=== PATIENT | female | born 1965 | race Caucasian/White ===

== ENCOUNTER → 2019-09-02 | Outpatient (CLI) | payer OTHER | END | disposition home or self-care (01) | LOC: LABPAT 12:10 | PROVIDERS: ATTEND Orthopaedic Surgery | DX: Z01.812 Encounter for preprocedural laboratory examination (principal) | CPT/HCPCS: 87070 ==

== ENCOUNTER 2019-09-13 11:38 | Day surgery (SDC) | payer OTHER ==
--- NOTE | 2019-09-12 16:34 | HP ---
HISTORY AND PHYSICAL CHIEF COMPLAINT: Left knee pain. HISTORY OF PRESENT ILLNESS: The patient is a 54-year-old unemployed female who presents with progressive left knee pain secondary to osteoarthrosis, worsening over the past several years. She has tried previous injections, with only partial temporary relief. She has also tried medications. She notes that the pain severely limits her function and activities. PAST MEDICAL HISTORY: Past medical history is significant for: 1. Hypertension. 2. Arthritis. 3. Atrial fibrillation. 4. Obesity. PAST SURGICAL HISTORY: Negative. CURRENT MEDICATION: Losartan. ALLERGIES: SHE DENIES DRUG ALLERGIES. FAMILY HISTORY: Family history is significant for cancer and heart disease. SOCIAL HISTORY: Negative for current tobacco or alcohol use. REVIEW OF SYSTEMS: Sixteen-point review of systems otherwise reviewed and is noncontributory. PHYSICAL EXAMINATION: On examination, the patient is approximately 5 feet 1 inch, 218 pounds of endomorphic habitus. HEENT exam is nonfocal. NECK: Supple. She has painless passive motion of her left hip. Iltrjeyc-qpm-bhcyv is negative. Active motion left knee minus 16 to 105 degrees of flexion. She has a moderate effusion. She is tender about the medial joint line. Collaterals are stable, Raffaele negative, Sangeeta's equivocal. She has genu varum alignment. Her distal neurovascular exam appears intact in the left lower extremity. X-rays of the left knee obtained in the office show severe medial and patellofemoral compartment narrowing. IMPRESSION: 1. Left knee severe medial and patellofemoral compartment osteoarthrosis. 2. Obesity. 3. History of atrial fibrillation. RECOMMENDATIONS: I talked to the patient at length regarding her condition and treatment options. At this point she is quite symptomatic and limited because of pain related to her osteoarthrosis despite conservative measures. After thorough discussion, she opts to proceed with surgery. We will plan to proceed with left total knee arthroplasty. We will institute DVT prophylaxis postoperatively. Risks and benefits were discussed at length in layman's terms. MMODL / IJN: [id number] /
[~2019-09-13 11:38] MED LIST: ACETAMINOPHEN TAB 500 MG TAB PO ONE; DEXAMETHASONE SOD PHOSPHATE 10 MG/ML 1 ML VIAL IV ONE; HYDROmorphone 0.5 MG/0.5 ML SYRINGE IVP PRN; LIDOCAINE 1% 20 ML VIAL (10MG/ML) FOR IV START INTRADERMA PRN; ONDANSETRON 4 MG/2 ML VIAL IVP ONE; Pre Op ABX Message 1 EACH MISC MISCELLANE ONE; TRANEXAMIC ACID 1,000 MG in SODIUM CHLORIDE 0.9% 100 ML IVPB ONE; fentaNYL (PF) 50 MCG/ML 2 ML AMP IV PRN
[2019-09-13] MEDS ORDERED: MELOXICAM 7.5 MG TAB PO ONE (12:30)
[2019-09-13] MEDS: LACTATED RINGERS 1,000 ML IV SCH (12:33)
[2019-09-13] MEDS ORDERED: LIDOCAINE 1% 20 ML VIAL (10MG/ML) FOR IV START SQ ONE (12:34)
[2019-09-13] MEDS ORDERED: fentaNYL (PF) 50 MCG/ML 2 ML AMP IV ONE (13:19)
[2019-09-13] MEDS ORDERED: MIDAZOLAM 2 MG/2 ML VIAL IV ONE (13:19)
[2019-09-13] MEDS ORDERED: ROPIVACAINE 246.25 MG, EPINEPHrine 0.5 MG, cloNIDine HCL/PF 80 MCG, WATER FOR INJECTION... MISCELLANE ONE ×8 (14:00→14:15)
[2019-09-13] MEDS ORDERED: ROPIVACAINE 0.2%-NS ON-Q PUMP 1,090 MG, EMPTY PAIN BALL 1 EACH MISCELLANE PRN (14:48)
--- NOTE | 2019-09-13 14:51 | P.ANPRN ---
Procedure Note - Anesthesia - Nerve Block Performed Right Adductor Canal Infusion Time Out Performed: Yes Date of Procedure: 08/30/19 Procedure Start Time: 13:18 Procedure Stop Time: 13:35 Location of Patient Procedure: PreOp Indication: Acute Post-Operative Pain, Requested by Surgeon Specifically requested for management of pain by DrEricka: Benjamin Genao Sedation Type: Sedate with meaningful contact maintained Preparation: Sterile Prep Position: Supine Catheter Depth at Skin (cm): 8 Catheter: Indwelling Needle Types: Pajunk Needle Gauge: 18 Ultrasound used to visualize needle placement: Yes Ultrasound used to observe medication spread: Yes Injectate: 0.5% Ropivacaine (see comment for volume) (20cc) Blood Aspirated: No Pain Paresthesia on Injection Noted: No Resistance on Injection: Normal Image Stored and Saved: Yes Events: Uneventful and Well Tolerated
[2019-09-13] MEDS ORDERED: TRANEXAMIC ACID 1,000 MG/10 ML VIAL ONE (14:53)
[2019-09-13] MEDS ORDERED: diphenhydrAMINE 50 MG/ML 1 ML VIAL ONE (14:53)
[2019-09-13] MEDS ORDERED: SODIUM CHLORIDE 0.9% 100 ML BAG ONE (14:53)
[2019-09-13] MEDS ORDERED: PROPOFOL 10 MG/ML 20 ML VIAL IV ONE (14:53)
[2019-09-13] MEDS ORDERED: LIDOCAINE 1% INJ 10MG/ML (20 ML MDV) ONE (14:53)
[2019-09-13] MEDS ORDERED: MIDAZOLAM 2 MG/2 ML VIAL ONE (14:53)
[2019-09-13] MEDS ORDERED: KETAMINE 10 MG/ML 20 ML VIAL ONE (14:53)
[2019-09-13] MEDS ORDERED: GLYCOPYRROLATE 0.2 MG/ML 2 ML VIAL ONE (14:53)
[2019-09-13] MEDS ORDERED: fentaNYL (PF) 50 MCG/ML 2 ML AMP ONE (14:53)
[2019-09-13] MEDS ORDERED: ceFAZolin 3,000 MG in SODIUM CHLORIDE 0.9% IRRIGATIO 3,000 ML IRRIGATION ONE (15:26)
[2019-09-13] MEDS ORDERED: traMADol 50 MG TAB PO PRN (16:29)
[2019-09-13] MEDS ORDERED: MAGNESIUM HYDROXIDE 2,400 MG/10 ML CUP PO PRN (16:29)
[2019-09-13] MEDS ORDERED: ONDANSETRON 4 MG/2 ML VIAL IVP PRN (16:29)
[2019-09-13] MEDS ORDERED: ACETAMINOPHEN TAB 325 MG TAB PO PRN (16:29)
[2019-09-13] MEDS ORDERED: NALOXONE 0.4 MG/ML 1 ML VIAL IV PRN (16:29)
[2019-09-13] MEDS ORDERED: LACTATED RINGERS 1,000 ML IV ONE (16:46)
--- NOTE | 2019-09-13 16:59 | P.OP ---
Date of Procedure: 09/13/19 Preoperative Diagnosis: Left knee severe tricompartmental osteoarthrosis Postoperative Diagnosis: Same Procedure(s) Performed: Left total knee arthroplastycementedcruciate retaining Implants: Depuy Attune size 5 cemented narrow femoral component, size 4 cemented tibial component, 9 mm articular surface, 32 mm cemented patellar component. This was a cruciate retaining implant. Anesthesia: regional, local, spinal Surgeon: Benjamin Genao Load Haul Dump Operator #1: Rudy Patel Estimated Blood Loss (ml): 50 Pathology: other (Bone fragments) Condition: stable Disposition: PACU Indications for Procedure: The patient's a 54-year-old female who presents with progressive left knee pain secondary to osteoarthrosis despite conservative measures. A discussion of the risks and benefits of operative intervention versus continued conservative measures was made with patient. She opted to proceed with surgery. Operative risks to include infection, neurovascular injury, development of blood clots, possible fracture, possible component loosening and need for subsequent procedures was discussed. Informed consent was obtained. Operative Findings: As below Description of Procedure: The patient was brought to the operating room, and after induction of spinal anesthesia the left lower extremity was prepped and draped in a normal fashion. The tourniquet was inflated to 270 mmHg. A longitudinal incision extending 3 finger breaths above the superior pole of the patella extending to the medial aspect the tibial tubercle was then made. The skin and subcutaneous tissues we re divided sharply. Electrocautery was used for hemostasis. A medial parapatellar arthrotomy was then performed. The medial soft tissues to include the superficial and deep portions of the medial collateral ligament as well as the medial hamstring tendons were elevated subperiosteally. The proximal medial tibia osteophytes were carefully removed. The patella was everted. The knee was flexed. A portion of the retropatellar fat pad was excised sharply. The anterior cruciate ligament was sacrificed. A starting hole was made in the distal femur 1 cm anterior to the posterior cruciate origin. An intramedullary femoral guide was gently inserted planning on 5 valgus distal cut with 9 mm distal resection. The cutting block was pinned in place. The distal cut was then made. The posterior referencing sizing guide was utilized. 3 of external rotation was built into the system and verified off the trans- epicondylar axis and the posterior condyles. I felt size 5 was most appropri ate. The cutting block was pinned in place. The anterior, posterior, and chamfer cuts were then made. The bone fragments were removed. A sulcus cut was then made with the appropriate guide. The trial size 5 femoral component was then placed and was fully seated. There was good anterior to posterior and medial to lateral fit. The distal peg holes were then drilled. The trial component was then removed. Attention was then paid towards preparing the proximal tibia. An extra medullary guide was utilized in line with the tibial shaft and second metatarsal distally. A 7 posterior slope was planned. I planned on 2 mm resection from the medial compartment. The cutting block was pinned in place. The proximal tibial cut was then made. The bone was removed in one fragment. The remnants of the medial and lateral menisci were excised the capsule junction with electrocautery. The tibia sized most appropriately at size 4. The posterior osteophytes off the distal femur were carefully removed with a curved osteotome. The trial tibial and femoral components were placed along with a 9 millimeters articular surface. I was able to obtain full flexion and extension with good stability with varus and valgus stress. After several flexion and extension cycles, the tibial rotation was marked with electrocautery in line with the medial one third of the tibial tubercle. Attention was then paid towards preparing the patella. A patella reamer was utilized taking this down to 14 mm of bone stock. A good flush cut was made. The patella sized most appropriately at 32 millimeters. The peg holes were then drilled. The trial component was placed. The knee was taken through a range of motion. I had good patellofemoral tracking with no hands technique. The trial components were then removed. The tibia was prepared in the appropriate rotation with appropriate drill and keel punch. The flexion and extension gaps were checked and felt to be symmetric. The posterior soft tissues were injected with ropivacaine. The bony surfaces were prepared with pulsatile lavage and dried. The deep tibial component was then cemented in place and was fully seated. Excess cement was removed. The femoral component was cemented in place and was fully seated. Again excess cement was removed. The trial 9 millimeters surface was then inserted in the knee was put in full extension. The patella component was cemented in place. After the cement had sufficiently hardened, the knee was again taken through a range of motion. Again there was good stability in flexion and extension with varus and valgus stress. The trial articular surface was then removed. The final articular surface was placed and was impacted. Care was taken to avoid any soft tissue interposition. Pulsatile lavage was again utilized. The tourniquet was deflated with approximately 70 minutes total tourniquet time. There was minimal drainage therefore a deep drain was not placed. The medial parapatellar arthrotomy was then closed with #2 Ethibond suture. The subcutaneous tissues were reapproximated interrupted 2-0 Vicryl sutures. The skin was reapproximated with 3-0 subarticular strata fix suture. Skin tape and adhesive was applied. A sterile dressing was applied. The patient was then awoken from sedation and transferred to recovery room in good condition. Blood loss was estimated at[] milliliters. No complications were incurred. Sponge and needle counts were correct at the end the case. Luis JACKSON assisted during the major components this case to include exposure, bone resection, and implantation.
--- NOTE | 2019-09-13 17:30 | XR ---
EXAMINATION TYPE: XR knee limited LT DATE OF EXAM: 09/13/2019 COMPARISON: NONE HISTORY: Postop TECHNIQUE: 2 views FINDINGS: There is left knee prosthesis. Components are in anatomic position. There is knee joint eff usion. There is no evidence of a fracture. IMPRESSION: Knee prosthesis in anatomic position.
[2019-09-13 18:16] VITALS: BMI 40.8
--- NOTE | 2019-09-13 20:04 | P.CONS ---
History of Present Illness - Reason for Consult Consult date: 09/13/19 - History of Present Illness The patient is a 54-year-old female with a past history of hypertension and obstructive sleep apnea (on CPAP) who was admitted to the hospital for planned left knee arthroplasty which she underwent uneventfully earlier today. The patient was seen on the surgical unit postoperatively and reported excellent control of her pain currently at a 2/10. She denied any additional complaints and was in good spirits. She denied chest pain, shortness of breath, nausea, vomiting, fever, chills, or abdominal pain. The patient has her home CPAP by the bedside. She notes compliance with her home losartan. Review of Systems Pertinent positives and negatives as discussed in HPI, a complete review of systems was performed and all other systems are negative. Past Medical History Past Medical History: Atrial Fibrillation, GERD/Reflux, Hypertension, Osteoarthritis (OA), Sleep Apnea/CPAP/BIPAP Additional Past Medical History / Comment(s): cpap machine History of Any Multi-Drug Resistant Organisms: None Reported Past Surgical History: Cardiac Ablation, Hysterectomy, Tonsillectomy Past Anesthesia/Blood Transfusion Reactions: No Reported Reaction Past Psychological History: No Psychological Hx Reported Smoking Status: Former smoker Past Alcohol Use History: Rare Additional Past Alcohol Use History / Comment(s): occasional smoker quit 20 years ago Past Drug Use History: None Reported - Past Family History Mother Family Medical History: Cancer Additional Family Medical History / Comment(s): breast cancer Father Family Medical History: Cancer Additional Family Medical History / Comment(s): prostate cancer Medications and Allergies Home Medications Medication Instructions Recorded Confirmed Type Losartan [Cozaar] 50 mg PO DAILY 09/08/19 09/13/19 History Allergies Allergy/AdvReac Type Severity Reaction Status Date / Time aspirin Allergy Anaphylaxis Verified 09/13/19 12:11 codeine Allergy Anaphylaxis Verified 09/13/19 12:11 Physical Exam Vitals: Vital Signs Temp Pulse Pulse Resp BP Pulse Ox 09/13/19 18:10 97.8 F 73 16 120/74 92 L 09/13/19 17:40 70 16 128/60 96 09/13/19 17:25 76 16 135/75 95 09/13/19 17:10 78 18 135/75 94 L 09/13/19 16:59 97 F L 96 16 134/66 95 09/13/19 13:45 61 16 128/68 98 09/13/19 12:18 97.3 F L 69 16 160/72 93 L Intake and Output 09/13/19 09/13/19 09/13/19 06:59 14:59 22:59 Intake Total 1050 401 Output Total 50 Balance 1050 351 Intake: IV 1050 401 Output: Estimated Blood Loss 50 General: non toxic, no distress, appears at stated age, normal weight Derm: no unusual rashes/lesions no unusual ecchymoses, warm, dry Head: atraumatic, normocephalic, symmetric Eyes: EOMI, no lid lag, anicteric sclera, pupils equal round reactive to light ENT: Nose and ears atraumatic, no thrush, no pharyngeal erythema Neck: No thyromegaly, no cervical lymphadenopathy, trachea midline, supple Mouth: no lip lesion, mucus membranes moist Cardiovascular: S1S2 reg, no murmur, positive posterior tibial pulse bilateral, no edema, capillary refill less than 2 seconds Lungs: CTA bilateral, no rhonchi, no rales , no accessory muscle use Abdominal: soft, nontender to palpation, no guarding, no appreciable organomegaly, normal bowel sounds Ext: no gross muscle atrophy, postsurgical left knee with an Gabriel dressing Neuro: CN II-XI grossly intact, light touch intact all 4 extremities, finger to nose within normal limits, Psych: Alert, oriented, appropriate affect Assessment and Plan Plan: Hypertension -Continue with home med losartan Obstructive sleep apnea -Continue with home CPAP Status post left knee arthroplasty -Management including pain control as per surgery DVT prophylaxis -As per surgery -Currently on Xarelto
[2019-09-13] MEDS ORDERED: SENNOSIDES-DOCUSATE SODIUM 1 EACH TAB PO SCH (21:00)
[2019-09-14] MEDS: LACTATED RINGERS 1,000 ML IV SCH (05:57)
[2019-09-14 07:18] VITALS: BP 126/71; PULSE 58; RESP 17; TEMP 98.5
[2019-09-14] MEDS ORDERED: RIVAROXABAN 10 MG TAB PO SCH (09:00)
[2019-09-14] MEDS ORDERED: LOSARTAN 50 MG TAB PO SCH (09:00)
[2019-09-14 09:29] LABS: Basophils % (A) 0 %; Eosinophils % (A) 0 %; HCT 37.1 % (34.0-46.0); HGB 12.3 gm/dL (11.4-16.0); Lymphocytes # (A) 1.7 k/uL (1.0-4.8); Lymphocytes % (A) 14 %; MCH 29.7 pg (25.0-35.0); MCHC 33.2 g/dL (31.0-37.0); MCV 89.4 fL (80.0-100.0); Monocytes # (A) 0.3 k/uL (0-1.0); Monocytes % (A) 2 %; Neutrophils # (A) 10.3 k/uL (1.3-7.7); Neutrophils % (A) 83 %; Platelet Count 297 k/uL (150-450); RBC 4.15 m/uL (3.80-5.40); RDW 12.9 % (11.5-15.5); WBC 12.4 k/uL (3.8-10.6)
--- NOTE | 2019-09-14 11:05 | P.PN ---
Subjective Progress Note Date: 09/14/19 Principal diagnosis: knee pain Patient with 54-year-old female with a past medical history of hypertension, obstructive sleep apnea on CPAP, A. fib, and hypertension who presented for elective left total knee arthroplasty. She tolerated the procedure without any immediate postoperative complications. Patient seen and examined at bedside. She is on be worked with physical therapy this morning. She reports that her pain is well-controlled. She denies any chest pain, shortness breath, nausea, or vomiting. She has not had a bowel movement yet. Objective - Vital Signs Vital signs: Vital Signs Temp 98.5 F 09/14/19 07:17 Pulse 58 L 09/14/19 07:17 Resp 17 09/14/19 07:17 BP 126/71 09/14/19 07:17 Pulse Ox 94 L 09/14/19 07:17 Intake & Output 09/13/19 09/14/19 09/14/19 18:59 06:59 18:59 Intake Total 1451 600 Output Total 50 Balance 1401 600 Intake: IV 1451 Oral 600 Output: Estimated Blood Loss 50 Other: # Voids 2 - Exam General: non toxic, no distress, appears at stated age, obese Derm: Dressing in place over left knee warm, dry Head: atraumatic, normocephalic, symmetric Eyes: EOMI, no lid lag, anicteric sclera Mouth: no lip lesion, mucus membranes moist Cardiovascular: S1S2 reg, no murmur, positive posterior tibial pulse bilateral, Lungs: CTA bilateral, no rhonchi, no rales , no accessory muscle use Abdominal: soft, nontender to palpation, no guarding, no appreciable or ganomegaly Ext: no gross muscle atrophy, no edema, no contractures Neuro: CN II-XI grossly intact, no focal neuro deficits Psych: Alert, oriented, appropriate affect - Labs CBC & Chem 7: 09/14/19 07:36 Labs: Abnormal Lab Results - Last 24 Hours (Table) 09/14/19 Range/Units 07:36 WBC 12.4 H (3.8-10.6) k/uL Neutrophils # 10.3 H (1.3-7.7) k/uL Assessment and Plan Assessment: Patient is a 54-year-old female status post left total knee arthroplasty. Hypertension, controlled -Continue with losartan Obstructive sleep apnea -Continue with home CPAP GERD -As needed PPI Patient is medically optimized for discharge at the discretion of orthopedic surgery. Thank you for allowing us to participate in the care of this patient. Do not hesitate to contact us with questions. Someone can be reached from the [facility] hospitalist group at all hours of the day at [phone].
--- NOTE | 2019-09-14 11:15 | P.PN ---
Subjective Progress Note Date: 09/14/19 Principal diagnosis: s/p left tka Pateint doing very well, pain is well controlled. Denies chest pain or shortness of breath. Has done very well with therapy. Objective - Vital Signs Vital signs: Vital Signs Temp 98.5 F 09/14/19 07:17 Pulse 58 L 09/14/19 07:17 Resp 17 09/14/19 07:17 BP 126/71 09/14/19 07:17 Pulse Ox 94 L 09/14/19 07:17 Intake & Output 09/13/19 09/14/19 09/14/19 18:59 06:59 18:59 Intake Total 1451 600 Output Total 50 Balance 1401 600 Intake: IV 1451 Oral 600 Output: Estimated Blood Loss 50 Other: # Voids 2 - Exam Left lower extremity: Incision is clean, dry, and intact. The exofin fusion tape is in good condition. There is minimal soft tissue swelling and ecchymosis surrounding the medial and lateral aspects of the incision. Calf is soft, no tenderness with palpation. Plantar flexion, dorsiflexion, EHL, FHL are intact. Sensory exam to light touch throughout the extremity is intact, dorsal pedis pulses 2+. - Labs CBC & Chem 7: 09/14/19 07:36 Labs: Abnormal Lab Results - Last 24 Hours (Table) 09/14/19 Range/Units 07:36 WBC 12.4 H (3.8-10.6) k/uL Neutrophils # 10.3 H (1.3-7.7) k/uL Assessment and Plan Plan: Assessment: Postop day #1 status post left total knee arthroplasty Plan: Pain control, tramadol 50 mg every 6 hours and Tylenol after discharge GI and DVT prophylaxis, Xarelto 10 mg every 12 days Wound care management discussed Medical recommendations Physical therapy and nursing after discharge Plan for discharge home today Time with Patient: Less than 30
--- NOTE | 2019-09-14 11:18 | P.DS ---
Providers Date of admission: 09/13/2019 Expected date of discharge: 09/14/19 Attending physician: Benjamin Genao Consults: 09/13/19 16:29 Consult Physician Routine Consulting Provider: Brielle Cobian Consult Reason/Comments: medical management Do you want consulting provider notified?: Yes Primary care physician: Brielle Cobian MD Hospital Course: Date of admission: 09/13/2019 Date of discharge: 09/14/2019 Admission diagnosis: Status post left total knee arthroplasty Discharge diagnosis: Same Attending physician: Dr. Genao Surgical procedures: Left total knee arthroplasty Brief history: Patient is a 54-year-old female with a history of progressive primary left knee osteoarthritis. At this point patient has failed conservative treatment measures and has opted to proceed with a elective left total knee arthroplasty. Hospital course: Details of patient's surgery can be found in operative report. Patient tolerated the procedure well and was subsequently transported to orthopedic floor. Patient's orthopeidc and medical care was provided daily. Patient had daily laboratory tests performed for evaluation of overall blood counts. Patient had daily physical therapy to include strengthening range of motion as well as education with walker ambulation. Patient had daily CPM usage as part of their physical therapy program. Patient was treated with Xarelto for their postoperative DVT prophylaxis during their inpatient stay. Patient was noted to have a relatively uneventful postoperative course. Patient reported satisfactory pain control with oral pain medications by postoperative day 0. Patient showed satisfactory progress with physical therapy. Patient moved steadily through the program and had no difficulty meeting the goals by postoper ative day 1. Given patient's otherwise satisfactory course and having met physical therapy goals, plan is to discharge patient home on postoperative day 1. Discharge condition/disposition: Patient will be discharged home in stable condition. Discharge medications: Instructions are given on resumption of patient's normal daily medications per primary care recommendation, in addition patient will be prescribed tramadol 50 mg, Colace 100 mg, Xarelto 10 mg. Discharge instructions: 1. Wound care and infection precautions, keep incision dry and covered while showering, no lotions, creams, moisturizers. No soaking, tubs, pools, hottubs. Do not scrub over the incision. 2. Weight-bear as tolerated with walker / cane until follow-up. 3. Ice and elevate when necessary. Do not exceed 20 minutes per hour with ice pack. 4. Utilize compression sleeve until seen at first follow up appointment. 5. Visiting nursing care. 6. Home physical therapy including home CPM. 7. Pain meds and anticoagulants per prescription. 8. Pain medication has potential to cause constipation. Increase oral fluid and fiber intake. Contact primary care provider if you have not had a bowel movement within 48 hours after discharge 9. No anti-inflammatory medication until discussed at first post operative visit, this including Motrin, Aleve, Mobic, Diclofenac. 10. Follow up in office at 2 weeks postop with Luis Patel PA-C 11. Follow up with your primary care doctor 7-10 days after discharge. 12. Contact [facility] with any questions, . Procedures: Left total knee arthroplasty Patient Condition at Discharge: Good Plan - Discharge Summary Discharge Rx Participant: Yes New Discharge Prescriptions: New Docusate [Colace] 100 mg PO DAILY #30 capsule traMADol HCl [Ultram] 50 mg PO Q6H PRN #28 tab PRN Reason: Pain Rivaroxaban [Xarelto] 10 mg PO DAILY #12 tab Continue Losartan [Cozaar] 50 mg PO DAILY Discharge Medication List Losartan [Cozaar] 50 mg PO DAILY 09/08/19 [History] Docusate [Colace] 100 mg PO DAILY #30 capsule 09/14/19 [Rx] Rivaroxaban [Xarelto] 10 mg PO DAILY #12 tab 09/14/19 [Rx] traMADol HCl [Ultram] 50 mg PO Q6H PRN #28 tab 09/14/19 [Rx] Follow up Appointment(s)/Referral(s): [facility], [NON-STAFF] - Rudy Patel PAC [PHYSICIAN FORESTRY INSTRUCTOR] - 09/28/19 3:10 pm Brielle Cobian MD [Primary Care Provider] - 09/20/19 9:00 am Activity/Diet/Wound Care/Special Instructions: Orthopedic Discharge Instructions: 1. Wound care and infection precautions, keep incision dry and covered while showering, no lotions, creams, moisturizers. No soaking, pools, hot tubs. Do not scrub over incision. 2. Weight-bear as tolerated with walker / cane until follow-up. 3. Ice and elevate when necessary. Do not exceed 20 minutes per hour with ice pack. 4. Utilize compression sleeve until seen at first follow up appointment. 5. Pain meds and anticoagulants per prescription. 6. Pain medication has potential to cause constipation. Increase oral fluid and fiber intake. Contact primary care provider if you have not had a bowel movement within 48 hours after discharge. 7. No anti-inflammatory medication until discussed at first post operative visit, this including Motrin, Aleve, Mobic, Diclofenac. 8. Follow up in office at 2 weeks postop with Luis Patel PA-C 9. Follow up with your primary care doctor 7-10 days after discharge. 10. Contact [facility] with any questions, [phone]. 11. *Please call [facility] once home to arrange delivery of Continuous Passive Motion (CPM) machine: [phone] Discharge Disposition: HOME WITH HOME HEALTH SERVICES
--- NOTE | 2019-09-14 12:00 | P.PN ---
Progress Note - Text Progress Note Date: 09/14/19 Patient was seen at bedside at 6:40 AM. Patient is postop day 1 from right total knee replacement with adductor canal catheter placed for pain . Ropivacaine 0.2% infusion running at 8 ml per hour. VAS score is 1. Patient denies side effects. Lower extremity sensation and motor function is intact. Patient has not yet ambulated. Dressing clean dry and intact over catheter site
--- NOTE | 2019-09-16 15:22 | CDI ---
Date: 09/16/19 CDS/Case Liner Name: Marisa Thompson Phone: If any questions, call Ryanne Allen Ash Handler at [phone] Patient Name: Dayron Lobo Admit Date: 09/13/19 Discharge Date: 09/14/19 ATTENTION: The [facility] Coding Staff appreciate your assistance in clarifying documentation. Please respond to the clarification below the line and electronically sign. The [facility] Coding Staff with review the response and follow- up if needed. Please note: Queries are made part of the Legal Health Record. If you have any questions, please contact the Ash Handler. Dear. Dr. Hadley, Please provide clarification as to the laterality of the nerve block to the adductor canal infusion. The operative report states that the procedure was performed on the left knee. The anesthesia procedure note states the block was performed on the right knee. Please clarify. Thank you for your kind consideration. ____ The adductor canal lock was performed on the left side. The procedure note incorrectly states that it was performed on the right. [facility]
== END 2019-09-14 12:54 | disposition home health service (06) ==
LOC: OR 11:38 → 4SSUR 16:59 → OR 09-14 12:54
PROVIDERS: ATTEND Orthopaedic Surgery
DX: M17.12 Unilateral primary osteoarthritis, left knee (principal); M25.762 Osteophyte, left knee; I10 Essential (primary) hypertension; K21.9 Gastro-esophageal reflux disease without esophagitis; R73.02 Impaired glucose tolerance (oral); G47.33 Obstructive sleep apnea (adult) (pediatric); Z99.89 Dependence on other enabling machines and devices; E66.9 Obesity, unspecified; Z68.41 Body mass index [BMI] 40.0-44.9, adult; Z87.891 Personal history of nicotine dependence; Z82.49 Family history of ischemic heart disease and other diseases of the circulatory system; Z90.710 Acquired absence of both cervix and uterus; Z90.722 Acquired absence of ovaries, bilateral; Z88.6 Allergy status to analgesic agent; Z88.5 Allergy status to narcotic agent; Z91.09 Other allergy status, other than to drugs and biological substances
CPT/HCPCS: 27447; 97161; 64448; 76942; 85025; 88300; 73560; C1713; C1776; J2250; J0171; J1200; J1100; J0690 ×3; J2405; J2001; J3010; J2795; J2704; J0735

== ENCOUNTER → 2021-05-08 | Outpatient (CLI) | payer OTHER ==
[2021-05-08 23:09] LABS: Albumin 4.2 g/dL (3.80-4.90); Albumin/Globulin Ratio 1.62 (1.60-3.17); Anion Gap 8.7 mmol/L (4.00-12.00); BUN/Creat Ratio 28.57 Ratio (12.00-20.00); Calcium 9.1 mg/dL (8.7-10.3); Carbon Dioxide 22.3 mmol/L (21.6-31.8); Chol/HDL Ratio 4.04; Globulin 2.6 g/dL (1.6-3.3); Non-African American GFR(CKD) 97.5 (60.0-200.0); Potassium 4.3 mmol/L (3.5-5.5); Total Bilirubin 0.6 mg/dL (0.2-1.2); Total Protein 6.8 g/dL (6.2-8.2)
== END | disposition home or self-care (01) ==
LOC: LABWHC1 09:46
PROVIDERS: ATTEND Internal Medicine Interventional Cardiology
DX: E78.2 Mixed hyperlipidemia (principal)
CPT/HCPCS: 36415; 80053; 80061

== ENCOUNTER → 2021-09-18 | Outpatient (CLI) | payer OTHER | END | disposition home or self-care (01) | LOC: LABWHC1 11:29 | PROVIDERS: ATTEND Emergency Medicine | DX: Z20.822 Contact with and (suspected) exposure to COVID-19 (principal) | CPT/HCPCS: 87635 ==

== ENCOUNTER → 2021-09-19 | Outpatient (CLI) | payer OTHER | END | disposition home or self-care (01) | LOC: LABWHC1 12:30 | PROVIDERS: ATTEND Emergency Medicine | DX: Z20.822 Contact with and (suspected) exposure to COVID-19 (principal) | CPT/HCPCS: 87635 ==

== ENCOUNTER → 2022-07-09 | Outpatient (CLI) | payer BC, OTHER ==
[2022-07-09 11:22] VITALS: BMI 40.5
== END ==
LOC: DBWHC3 09:58
PROVIDERS: ATTEND Family Medicine
DX: E11.9 Type 2 diabetes mellitus without complications (principal); Z79.84 Long term (current) use of oral hypoglycemic drugs; Z88.6 Allergy status to analgesic agent; Z88.5 Allergy status to narcotic agent; Z87.891 Personal history of nicotine dependence
CPT/HCPCS: G0108 ×3

== ENCOUNTER → 2023-05-08 | Outpatient (CLI) | payer BC ==
--- NOTE | 2023-05-11 09:30 | MM ---
Reason for Exam: Screening (asymptomatic). Patient History: Menarche at age 12. Patient has no children. Left ovary removed at age 43. Right ovary removed at age 43. Hysterectomy at age 43. Maternal aunt had breast cancer. Mother had breast cancer at or over age 50. Risk Values: Darshana 5 year model risk: 2.8%. NCI Lifetime model risk: 16.2%. Prior Study Comparison: No prior studies available for comparison. Tissue Density: The breast tissue is heterogeneously dense. This may lower the sensitivity of mammography. Findings: Analyzed By CAD. There is no suspicious group of microcalcifications or new suspicious mass in either breast. Overall Assessment: Benign, BI-RAD 2 Management: Screening Mammogram of both breasts in 1 year. . Patient should continue monthly self-breast exams. A clinical breast exam by your physician is recommended on an annual basis. This exam should not preclude additional follow-up of suspicious palpable abnormalities. Note on Darshana scores and lifetime risk: 1. A Darshana score greater than 3% is considered moderate risk. If this is the case, consider specialist referral to assess eligibility for a risk reducing agent. 2. If overall lifetime risk for the development of breast cancer is 20% or higher, the patient may qualify for future screening with alternating mammogram and breast MRI. Electronically signed and approved by: Lonny Joyce M.D. Radiologis
== END | disposition home or self-care (01) ==
LOC: RADMAMWWP 15:03
PROVIDERS: ATTEND Family Medicine
DX: Z12.31 Encounter for screening mammogram for malignant neoplasm of breast (principal); Z80.3 Family history of malignant neoplasm of breast
CPT/HCPCS: 77063; 77067

== ENCOUNTER 2024-11-11 08:50 | Emergency (ER) | payer BC ==
[2024-11-11 09:00] VITALS: TEMP 98.4
[2024-11-11 09:38] LABS: Basophils # (A) 0.1 k/uL (0-0.2); Basophils % (A) 1 %; Eosinophils # (A) 0.1 k/uL (0-0.7); Eosinophils % (A) 2 %; HCT 37.6 % (34.0-46.0); Lymphocytes # (A) 2.7 k/uL (1.0-4.8); Lymphocytes % (A) 39 %; MCH 26.9 pg (25.0-35.0); MCHC 31.8 g/dL (31.0-37.0); MCV 84.6 fL (80.0-100.0); Mean Platelet Volume 6.4; Monocytes # (A) 0.3 k/uL (0-1.0); Monocytes % (A) 4 %; Neutrophils # (A) 3.7 k/uL (1.3-7.7); Neutrophils % (A) 54 %; Platelet Count 310 k/uL (150-450); RBC 4.44 m/uL (3.80-5.40); RDW 13.5 % (11.5-15.5)
[2024-11-11 09:48] LABS: INR 1.1 (<1.2); Partial Thromboplastin Time 27.9 sec (22.0-30.0); Prothrombin Time 11.6 sec (10.0-12.5)
--- NOTE | 2024-11-11 09:56 | ED ---
General Adult HPI - General Chief complaint: GI Bleed Stated complaint: blood in stool Time Seen by Provider: 11/11/24 09:00 Source: patient, RN notes reviewed, old records reviewed Mode of arrival: ambulatory Limitations: no limitations - History of Present Illness Initial comments: Is a 59-year-old female who presents to the emergency department stating that she has been having some blood in her stools for about 10 days. Patient states she will have it 1 day in the next couple days she does not and then will start again. Patient states she is being scheduled for colonoscopy. Patient states it occurred again today so she came in to be evaluated. Patient denies any abdominal pain. Patient denies dizziness or lightheadedness. Patient has any weakness. Patient states she was on a blood thinner but she has been removed off her blood thinner for 2 days now. - Related Data Home Medications Medication Instructions Recorded Confirmed Losartan [Cozaar] 50 mg PO DAILY 09/08/19 09/13/19 metFORMIN HCL ER [Glucophage XR] 500 mg PO DAILY 07/09/22 07/09/22 Previous Rx's Medication Instructions Recorded Docusate [Colace] 100 mg PO DAILY #30 capsule 09/14/19 Rivaroxaban [Xarelto] 10 mg PO DAILY #12 tab 09/14/19 traMADol HCl [Ultram] 50 mg PO Q6H PRN #28 tab 09/14/19 Allergies Allergy/AdvReac Type Severity Reaction Status Date / Time aspirin Allergy Anaphylaxis Verified 11/11/24 08:53 codeine Allergy Anaphylaxis Verified 11/11/24 08:53 Review of Systems ROS Statement: Those systems with pertinent positive or pertinent negative responses have been documented in the HPI. ROS Other: All systems not noted in ROS Statement are negative. Past Medical History Past Medical History: Atrial Fibrillation, Diabetes Mellitus, GERD/Reflux, Hypertension, Osteoarthritis (OA), Sleep Apnea/CPAP/BIPAP Additional Past Medical History / Comment(s): cpap machine History of Any Multi-Drug Resistant Organisms: None Reported Past Surgical History: Cardiac Ablation, Hysterectomy, Joint Replacement, Tonsillectomy Additional Past Surgical History / Comment(s): left knee Past Anesthesia/Blood Transfusion Reactions: No Reported Reaction Past Psychological History: No Psychological Hx Reported Smoking Status: Former smoker - Past Family History Mother Family Medical History: Cancer Additional Family Medical History / Comment(s): breast cancer Father Family Medical History: Cancer Additional Family Medical History / Comment(s): prostate cancer General Exam - General Exam Comments Initial Comments: GENERAL: Patient is well-developed and well-nourished. Patient is nontoxic and well- hydrated and is in no acute distress. ENT: Neck is soft and supple. No significant lymphadenopathy is noted. Oropharynx is clear. Moist mucous membranes. Neck has full range of motion without eliciting any pain. EYES: The sclera were anicteric and conjunctiva were pink and moist. Extraocular movements were intact and pupils were equal round and reactive to light. Eyelids were unremarkable. PULMONARY: Unlabored respirations. Good breath sounds bilaterally. No audible rales rhonchi or wheezing was noted. CARDIOVASCULAR: There is a regular rate and rhythm without any murmurs gallops or rubs. ABDOMEN: Soft and nontender with normal bowel sounds. SKIN: Skin is clear with no lesions or rashes and otherwise unremarkable. NEUROLOGIC: Patient is alert and oriented x3. Cranial nerves II through XII are grossly intact. Motor and sensory are also intact. Normal speech, volume and content. Symmetrical smile. MUSCULOSKELETAL: Normal extremities with adequate strength and full range of motion. LYMPHATICS: No significant lymphadenopathy is noted PSYCHIATRIC: Normal psychiatric evaluation. Limitations: no limitations Course Vital Signs 11/11/24 08:54 Temperature 98.4 F Pulse Rate 71 Respiratory 20 Rate Blood Pressure 145/62 O2 Sat by Pulse 99 Oximetry Medical Decision Making - Medical Decision Making Was pt. sent in by a medical professional or institution ([facility], [facility], urgent care, hospital, or long term...) When possible be specific @ -No Did you speak to anyone other than the patient for history (EMS, parent, family, police, friend...)? What history was obtained from this source @ -No Did you review nursing and triage notes (agree or disagree)? Why? @ -I reviewed and agree with nursing and triage notes Were old charts reviewed (outside hosp., previous admission, EMS record, old EKG, old radiological studies, urgent care reports/EKG's, long term records)? Report findings @ -No old charts were reviewed Differential Diagnosis? @ -Differential GI Bleed: Esophageal varices, aortoenteric fistula, Kathie-Holland, gastritis, peptic ulcer disease, diverticulosis, inflammatory bowel disease, hemorrhoids, fissure, colitis, malignancy, Meckel's diverticulum, this is not meant to be an all- inclusive list. EKG interpreted by me (3pts min.). @ -As above X-rays interpreted by me (1pt min.). @ -None done CT interpreted by me (1pt min.). @ -None done U/S interpreted by me (1pt. min.). @ -None done What testing was considered but not performed or refused? (CT, X-rays, U/S, labs)? Why? @ -None What meds were considered but not given or refused? Why? @ -None Did you discuss the management of the patient with other professionals (professionals i.e. DrEricka, PA, [facility] [facility], lab, RT, psych nurse, bilingual social worker, blending tank tender, teacher, traffic officer, comp field case manager)? Give summary @ -No Was smoking cessation discussed for >3mins.? @ -No Was critical care preformed (if so, how long)? @ -No Were there social determinants of health that impacted care today? How? (Homelessness, low income, unemployed, alcoholism, drug addiction, transportation, low edu. Level, literacy, decrease access to med. care, residential, rehab)? @ -No Was there de-escalation of care discussed even if they declined (Discuss DNR or withdrawal of care, Hospice)? DNR status @ -No What co-morbidities impacted this encounter? (DM, HTN, Smoking, COPD, CAD, Cancer, CVA, ARF, Chemo, Hep., AIDS, mental health diagnosis, sleep apnea, morbid obesity)? @ -None Was patient admitted / discharged? Hospital course, mention meds given and route, prescriptions, significant lab abnormalities, going to OR and other pertinent info. @ -Patient's hemoglobin is stable. Patient already has arrangements to get a colonoscopy. Patient will follow-up with the GI doctor unless she has further symptoms and she will return to the emergency department Undiagnosed new problem with uncertain prognosis? @ -No Drug Therapy requiring intensive monitoring for toxicity (Heparin, Nitro, Insulin, Cardizem)? @ -No Were any procedures done? @ -No Diagnosis/symptom? @ -Lower GI bleed Acute, or Chronic, or Acute on Chronic? @ -Acute Uncomplicated (without systemic symptoms) or Complicated (systemic symptoms)? @ -Complicated Side effects of treatment? @ -No Exacerbation, Progression, or Severe Exacerbation? @ -No Poses a threat to life or bodily function? How? (Chest pain, [place], [place], pneumonia, PE, COPD, DKA, ARF, appy, cholecystitis, CVA, Diverticulitis, Homicidal, Suicidal, threat to staff... and all critical care pts) @ -No - Lab Data Result diagrams: 11/11/24 09:30 11/11/24 09:30 Lab Results 11/11/24 11/11/24 11/11/24 Range/Units 09:30 09: 09:30 WBC 7.0 (3.8-10.6) k/uL RBC 4.44 (3.80-5.40) m/uL Hgb 12.0 (11.4-16.0) gm/dL Hct 37.6 (34.0-46.0) % MCV 84.6 (80.0-100.0) fL MCH 26.9 (25.0-35.0) pg MCHC 31.8 (31.0-37.0) g/dL RDW 13.5 (11.5-15.5) % Plt Count 310 (150-450) k/uL MPV 6.4 Neutrophils % 54 % Lymphocytes % 39 % Monocytes % 4 % Eosinophils % 2 % Basophils % 1 % Neutrophils # 3.7 (1.3-7.7) k/uL Lymphocytes # 2.7 (1.0-4.8) k/uL Monocytes # 0.3 (0-1.0) k/uL Eosinophils # 0.1 (0-0.7) k/uL Basophils # 0.1 (0-0.2) k/uL PT 11.6 (10.0-12.5) sec INR 1.1 (<1.2) APTT 27.9 (22.0-30.0) sec Sodium 139 (137-145) mmol/L Potassium 4.2 (3.5-5.1) mmol/L Chloride 106 (98-107) mmol/L Carbon Dioxide 22 (22-30) mmol/L Anion Gap 11 mmol/L BUN 25 H (7-17) mg/dL Creatinine 0.70 (0.52-1.04) mg/dL Est GFR (CKD-EPI)AfAm >90 (>60 ml/min/1.73 sqM) Est GFR (CKD-EPI)NonAf >90 (>60 ml/min/1.73 sqM) Glucose 145 H (74-99) mg/dL Calcium 9.7 (8.4-10.2) mg/dL Total Bilirubin 0.4 (0.2-1.3) mg/dL AST 29 (14-36) U/L ALT 19 (4-34) U/L Alkaline Phosphatase 47 (38-126) U/L Total Protein 7.3 (6.3-8.2) g/dL Albumin 4.6 (3.5-5.0) g/dL Disposition Clinical Impression: Lower GI bleed Disposition: HOME SELF-CARE Condition: Good Instructions (If sedation given, give patient instructions): Gastrointestinal Bleeding (ED) Additional Instructions: Patient should return if there is lightheadedness or shortness of breath or heavy bleeding. Is patient prescribed a controlled substance at d/c from ED?: No Referrals: Jey Escobar MD [Primary Care Provider] - 1-2 days Time of Disposition: 10:48
[2024-11-11 10:07] LABS: ALT 19 U/L (4-34); AST 29 U/L (14-36); African American GFR (CKD) >90 (>60 ml/min/1.73 sqM); Albumin 4.6 g/dL (3.5-5.0); Alkaline Phosphatase 47 U/L (38-126); Anion Gap 11 mmol/L; Blood Urea Nitrogen 25 mg/dL (7-17); Calcium 9.7 mg/dL (8.4-10.2); Carbon Dioxide 22 mmol/L (22-30); Chloride 106 mmol/L (98-107); Glucose 145 mg/dL (74-99); Non-African American GFR(CKD) >90 (>60 ml/min/1.73 sqM); Potassium 4.2 mmol/L (3.5-5.1); Sodium 139 mmol/L (137-145); Total Bilirubin 0.4 mg/dL (0.2-1.3); Total Protein 7.3 g/dL (6.3-8.2)
[2024-11-11 10:58] VITALS: BP 128/75; PULSE 47; RESP 16
== END 2024-11-11 11:04 | disposition home or self-care (01) ==
LOC: EC 08:50
DX: K92.2 Gastrointestinal hemorrhage, unspecified (principal); Z87.891 Personal history of nicotine dependence; Z88.6 Allergy status to analgesic agent; Z88.5 Allergy status to narcotic agent
CPT/HCPCS: 36415; 80053; 85025; 85610; 85730; 99284

== ENCOUNTER → 2024-11-29 | Outpatient (CLI) | payer BC ==
[2024-11-29 09:45] LABS: African American GFR (CKD) >90 (>60 ml/min/1.73 sqM); Blood Urea Nitrogen 13 mg/dL (7-17); Non-African American GFR(CKD) >90 (>60 ml/min/1.73 sqM)
--- NOTE | 2024-11-29 14:38 | CT ---
EXAMINATION TYPE: CT abdomen pelvis w con DATE OF EXAM: 11/29/2024 HISTORY: recent colonoscopy with rectal mass/ intra- abdominal and pelvic swelling findings CT DLP: 2127.90mGycm Automated Exposure Control for Dose Reduction was Utilized. CONTRAST: CT scan of the abdomen and pelvis is performed with oral and with IV Contrast, patient injected with 100 mL of Isovue 300. COMPARISON: None. FINDINGS: LUNG BASES: No significant abnormality is appreciated. LIVER/GB: No significant abnormality is appreciated. PANCREAS: No significant abnormality is seen. SPLEEN: No significant abnormality is seen. ADRENALS: No significant abnormality is seen. KIDNEYS: There is incidental 1.5 cm simple cortical cyst upper pole of the left kidney delayed byrd l image 69. Symmetric cortical medullary uptake and excretion is present without hydronephrosis seen bilaterally. BOWEL: Small to moderate size hiatal hernia. Oral contrast reaches level of the distal sigmoid colon. There is no abnormal small or large bowel dilatation. The known rectal mass or neoplasm on colonosco py is less well appreciated on CT but likely present distally. UTERUS/ADNEXA: No gross abnormality seen. LYMPH NODES: There is nonspecific 6 to 7 mm lymph node in the left-sided perirectal fat on axial imag e 78. No greater than 1 cm abdominal or pelvic adenopathy is clearly seen. OSSEOUS STRUCTURES: No significant abnormality is seen. OTHER: There is focal eventration or hernia right lower abdominal wall containing nondilated small rommel wel loops. IMPRESSION: No suspicious mass to suggest metastatic disease. [facility], , 11/29/2024 2:36 PM
== END | disposition home or self-care (01) ==
LOC: RADCTMAIN 08:58
PROVIDERS: ATTEND Internal Medicine Gastroenterology
DX: R19.00 Intra-abdominal and pelvic swelling, mass and lump, unspecified site (principal)
CPT/HCPCS: 82565; 84520; 74177; 36415; Q9967

== ENCOUNTER → 2024-12-20 | Outpatient (CLI) | payer BC ==
[2024-12-20 14:47] LABS: African American GFR (CKD) 75 (>60 ml/min/1.73 sqM); Blood Urea Nitrogen 27 mg/dL (7-17); Non-African American GFR(CKD) 65 (>60 ml/min/1.73 sqM)
--- NOTE | 2024-12-20 15:35 | CT ---
CT chest with contrast HISTORY: Rectal cancer. COMPARISON: None TECHNIQUE: Multiple axial images were obtained through the chest following the uneventful menstruatio n nonionic IV contrast material. FINDINGS: There is a 4 mm subpleural parenchymal nodule in the right lower lobe(series 4, image #31) and a few scattered micronodules. There is no airspace consolidation. There is no abnormal interstitial density. There is a 1.5 cm nodule in the left lobe of thyroid gland. Correlate with thyroid ultrasound to excl ude malignancy. The great vessels the chest are normal and is no mediastinal, hilar or axillary adenopathy. Limited scanning through the upper abdomen reveals a small hiatal hernia. No focal osseous lesions are seen. IMPRESSION: 1. Few scattered micronodules and 4 mm subpleural parenchymal nodule in the right lower lobe. These a re likely benign but given the lack of prior studies for comparison, stability cannot be confirmed on additional follow-up CT thorax in 6 months is recommended. 2. 1.5 cm nodule in the right lobe of the thyroid gland. Correlate with thyroid ultrasound to rule ou t malignancy. 3. No acute cardiopulmonary disease. 4. Small hiatal hernia. [facility], , 12/20/2024 3:33 PM
== END | disposition home or self-care (01) ==
LOC: RADCTMAIN 14:01
PROVIDERS: ATTEND Internal Medicine
DX: K44.9 Diaphragmatic hernia without obstruction or gangrene (principal); C20 Malignant neoplasm of rectum; I48.91 Unspecified atrial fibrillation; E11.9 Type 2 diabetes mellitus without complications; E78.5 Hyperlipidemia, unspecified; R91.1 Solitary pulmonary nodule; E04.1 Nontoxic single thyroid nodule; Z71.3 Dietary counseling and surveillance
CPT/HCPCS: 82565; 84520; 71260; 36415; Q9967

== ENCOUNTER 2025-01-13 12:26 | Day surgery (SDC) | payer BC ==
[2025-01-11 10:27] VITALS: BMI 39.4
[~2025-01-13 12:26] MED LIST changes: -ACETAMINOPHEN TAB 500 MG TAB PO ONE; -DEXAMETHASONE SOD PHOSPHATE 10 MG/ML 1 ML VIAL IV ONE; -HYDROmorphone 0.5 MG/0.5 ML SYRINGE IVP PRN; -LIDOCAINE 1% 20 ML VIAL (10MG/ML) FOR IV START INTRADERMA PRN; +MIDAZOLAM 2 MG/2 ML VIAL IV PRN; -ONDANSETRON 4 MG/2 ML VIAL IVP ONE; -TRANEXAMIC ACID 1,000 MG in SODIUM CHLORIDE 0.9% 100 ML IVPB ONE
[2025-01-13 13:10] LABS: Glucose,Whole Blood 93 mg/dL (70-110)
[2025-01-13] MEDS: IV FLUID CONTINUATION 1,000 ML IV ONE (13:10)
[2025-01-13] MEDS: LACTATED RINGERS 1,000 ML IV SCH (13:10)
[2025-01-13] MEDS: ONDANSETRON 4 MG/2 ML VIAL IVP ONE (13:18)
[2025-01-13] MEDS: DEXAMETHASONE SOD PHOSPHATE 4 MG/ML 1 ML VIAL IV ONE (13:18)
[2025-01-13] MEDS: SCOPOLAMINE 1 MG/72 HR PATCH TRANSDERM ONE (13:18)
[2025-01-13] MEDS ORDERED: MIDAZOLAM 2 MG/2 ML VIAL ONE (14:36)
[2025-01-13] MEDS ORDERED: GLYCOPYRROLATE 0.2 MG/ML 2 ML VIAL ONE (14:36)
[2025-01-13] MEDS ORDERED: fentaNYL (PF) 50 MCG/ML 2 ML AMP ONE (14:36)
[2025-01-13] MEDS ORDERED: KETAMINE HCL IN 0.9 % NACL 50 MG/5 ML SYRINGE ONE (14:36)
[2025-01-13] MEDS ORDERED: DEXAMETHASONE SOD PHOSPHATE 10 MG/ML 1 ML VIAL ONE (14:36)
[2025-01-13] MEDS ORDERED: SUCCINYLCHOLINE CHLORIDE 200 MG/10 ML VIAL IV ONE (14:36)
[2025-01-13] MEDS ORDERED: PROPOFOL 10 MG/ML 20 ML VIAL IV ONE (14:36)
[2025-01-13] MEDS: SODIUM CHLORIDE 0.9% 50 ML with ceFAZolin 2,000 MG IV ONE (14:41)
[2025-01-13] MEDS: LIDOCAINE (PF) 10 MG/ML 2 ML VIAL SQ ONE ×2 (15:25)
[2025-01-13] MEDS: HEPARIN SODIUM,PORCINE 100 UNIT/ML 5 ML VIAL IV ONE ×2 (15:25)
--- NOTE | 2025-01-13 16:05 | P.OP ---
Date of Procedure: 01/13/25 Preoperative Diagnosis: rectal cancer Postoperative Diagnosis: rectal cancer/aspiration Procedure(s) Performed: egd bronchoscopy Anesthesia: EMILY Surgeon: Lalito Moore Pathology: none sent Condition: stable Disposition: PACU Indications for Procedure: possible aspiration, rectal cancer Operative Findings: minimal to no gastric contents Description of Procedure: A flexible bronch was used to traverse the mouth, trachea, right and left bronchus. No aspirate or gastric contents were observed. Galina blunt and pink. Scope was retracted intact. Patient was brought to the operative suite where she was cleaned and draped in sterile fashion. A timeout was performed and everyone agreed with the information recited. Next an introducer needle was used to access the right subclavian vein. Next a guidewire was threaded under fluoro. The pocket was anes thetized using local. A pocket was created. A tunneling device was used to communicate from the pocket to the incision. A dilator sheath combo was used over the guidewire under fluoro. The catheter was threaded through the dilator sheath combo. The sheath was removed and an 8 peruvian mediport was attached and secured tot he prepectoral fascia. The skin was closed using 4-0 vicryl suture. Fluoro was again used to confirm placement. The port flushed and aspirated well. it was hep locked and the patient was transported to pacu in stable condition.
[2025-01-13 16:09] VITALS: TEMP 97.2
--- NOTE | 2025-01-13 16:09 | FL ---
EXAMINATION TYPE: FL guided central line placemt Intraoperative/procedural fluoroscopic services were provided. CLINICAL INDICATION:Female, 59 years old with history of C20 RECTLAL CANCER; , [facility] FINDINGS: Right anterior chest wall subclavian approach Mediport catheter with distal tip in the andrzej on of the SVC. No radiographic evidence for complication. Total fluoroscopy time is 73.8 seconds. DAP: [id number] mGym2 Please see the operative/procedural note for further details. [facility], , 01/13/2025 4:07 PM
[2025-01-13] MEDS: IPRATROPIUM-ALBUTEROL 3 ML NEB INHALATION STA (16:19)
--- NOTE | 2025-01-13 16:50 | XR ---
EXAMINATION TYPE: XR chest 1V portable DATE OF EXAM: 01/13/2025 4:41 PM COMPARISON: None. CLINICAL INDICATION: Female, 59 years old with history of S/P MEDIPORT PLACEMENT, TECHNIQUE: XR chest 1V portable view(s) obtained. FINDINGS: The heart size is normal. The pulmonary vasculature is normal. There is an infiltrate in the left midlung. Port is present on the right with the tip in the superior vena cava region IMPRESSION: 1. Left perihilar infiltrate. Correlate for atelectasis and pneumonia. 2. Mediport placement on the right with the tip in the superior vena cava region. No pneumothorax is evident. [facility], , 01/13/2025 4:47 PM
[2025-01-13 17:25] VITALS: BP 121/65; PULSE 87; RESP 16
== END 2025-01-13 17:42 | disposition home or self-care (01) ==
LOC: OR 12:26
PROVIDERS: ATTEND Surgery
DX: C20 Malignant neoplasm of rectum (principal); I10 Essential (primary) hypertension; E78.5 Hyperlipidemia, unspecified; I48.91 Unspecified atrial fibrillation; G47.33 Obstructive sleep apnea (adult) (pediatric); E11.9 Type 2 diabetes mellitus without complications; K21.9 Gastro-esophageal reflux disease without esophagitis; Z79.84 Long term (current) use of oral hypoglycemic drugs; Z79.899 Other long term (current) drug therapy; Z88.5 Allergy status to narcotic agent; Z88.6 Allergy status to analgesic agent
CPT/HCPCS: 77001; 71045; 31622; 36561; C1788; J2250; J0330; J2003; J1642; J1100 ×2; J2405; J0690; J3010; J2704; J1596